=== PATIENT | male | born 1965 | race Caucasian/White ===

== ENCOUNTER 2018-04-09 00:45 | Emergency (ER) | payer OTHER ==
[~2018-04-09] VITALS: Ht 188 cm; Wt 83.9 kg
[2018-04-09] MEDS ORDERED: CIPRO500 MG PO (08:11)
[2018-04-09] MEDS ORDERED: TAMS0.4C PO (08:11)
[2018-04-09] MEDS ORDERED: KETO10TA2 PO (08:11)
[2018-04-09] MEDS ORDERED: PERCOCET 5-3251 EACH PO (08:11)
== END 2018-04-09 08:31 | disposition home or self-care (01) ==
LOC: ER 00:45
DX: N20.2 Calculus of kidney with calculus of ureter (principal); R10.12 Left upper quadrant pain